=== PATIENT | female | born 1940 | race Caucasian/White ===

== ENCOUNTER → 2018-10-27 | Outpatient (CLI) | payer MEDICARE ==
[~2018-10-27] MED LIST: LEVSOD75 PO; Prinivil10 MG PO
[2018-10-27 19:42] LABS: Alanine Aminotransfer (ALT/SGP 25 U/L (12-78); Albumin, Blood 3.9 g/dL (3.4-5.0); Albumin/Globulin Ratio 1.4 (0.8-1.8); Alk Phos 60 U/L (50-136); Anion Gap 6 mmol/L (6-16); Aspartate Aminotrans (AST/SGOT 18 U/L (12-37); Bilirubin, Total 0.3 mg/dL (0.1-1.0); Blood Urea Nitrogen 24 mg/dL (8-24); Bun/Creatinine Ratio 25.5 (12.0-20.0); CO2, Blood 25 mmol/L (21-32); Calcium, Blood 8.8 mg/dL (8.5-10.1); Chloride, Blood 100 mmol/L (98-108); Creatinine, Blood 0.94 mg/dL (0.40-1.00); Free Thyroxine 1.35 ng/dL (0.70-1.60); Globulin, Blood 2.7 g/dL (2.2-4.0); Glomerular Filtration Rate >60 (60-); Glucose, Blood 92 mg/dL (70-99); Potassium, Blood 4.5 mmol/L (3.5-5.5); Sodium, Blood 131 mmol/L (136-145); Thyroid Stimulating Hormone 0.715 uIU/mL (0.360-4.800); Total Protein, Blood 6.6 g/dL (6.4-8.2)
[2018-10-27 19:49] LABS: Percent Saturation 25.7 % (15.0-50.0)
[2018-10-30 15:07] LABS: A/G RATIO 2.1 (0.7-1.7); ALBUMIN 4.2 g/dL (2.9-4.4); ALPHA-1-GLOBULIN 0.1 g/dL (0.0-0.4); ALPHA-2-GLOBULIN 0.6 g/dL (0.4-1.0); BETA GLOBULIN 0.8 g/dL (0.7-1.3); GAMMA GLOBULIN 0.5 g/dL (0.4-1.8); M-SPIKE Not Observed g/dL (Not Observed); PROTEIN, TOTAL, SERUM 6.2 g/dL (6.0-8.5)
== END | disposition home or self-care (01) ==
LOC: LAB 16:00 → LAB SHORT 16:00
PROVIDERS: Internal Medicine Hematology & Oncology
DX: Z00.00 Encounter for general adult medical examination without abnormal findings (principal); D64.9 Anemia, unspecified; R53.81 Other malaise; R53.83 Other fatigue; E03.9 Hypothyroidism, unspecified
CPT/HCPCS: 80053; 83540; 83550; 84165; 84439; 84443

== ENCOUNTER 2018-11-23 07:17 | Day surgery (SDC) | payer MEDICARE ==
[~2018-11-23] VITALS: Ht 160 cm; Wt 89.5 kg
--- NOTE | 2018-11-23 09:00 | NUR ---
11/23/18 0900 Sarah Sepulveda PT UPDATED OF DELAY IN HER CASE DUE TO PREVIOUS CASE RUNNING LONGER THAN SCHEDULED. PT OFFERED WARM BLANKET AND BATHROOM, PT DENIED BOTH. BED IN LOW, LOCKED POSTION, CALL LIGHT IN REACH.
== END 2018-11-23 11:45 | disposition home or self-care (01) ==
LOC: ORSCSDS 07:17
PROVIDERS: Student in an Organized Health Care Education/Training Program
PROC: 0DBL8ZX Excision of Transverse Colon, Via Natural or Artificial Opening Endoscopic, Diagnostic (ICD-10-PCS; principal; 2018-11-23 09:00)
PROC: 0DBH8ZX Excision of Cecum, Via Natural or Artificial Opening Endoscopic, Diagnostic (ICD-10-PCS; principal; 2018-11-23 09:00)
PROC: 0DBN8ZX Excision of Sigmoid Colon, Via Natural or Artificial Opening Endoscopic, Diagnostic (ICD-10-PCS; principal; 2018-11-23 09:00)
DX: D64.9 Anemia, unspecified (principal); D12.0 Benign neoplasm of cecum; D12.3 Benign neoplasm of transverse colon; K63.5 Polyp of colon; K57.30 Diverticulosis of large intestine without perforation or abscess without bleeding; K64.8 Other hemorrhoids; K64.4 Residual hemorrhoidal skin tags; I10 Essential (primary) hypertension; E03.9 Hypothyroidism, unspecified; Z87.891 Personal history of nicotine dependence; Z79.899 Other long term (current) drug therapy
CPT/HCPCS: 88305; J2405; J2704; J7120

== ENCOUNTER → 2019-03-11 | Outpatient (CLI) | payer MEDICARE | LOC: LAB SHORT 16:10 → LAB 16:10 | DX: D51.8 Other vitamin B12 deficiency anemias (principal) | CPT/HCPCS: 82607; 82746 ==

== ENCOUNTER 2022-10-16 08:42 | Day surgery (SDC) | payer MEDICARE ==
[~2022-10-16] VITALS: Ht 152.4 cm; Wt 85.0 kg
[2022-10-16] VITALS (16 sets, daily range): BP systolic 110–168; BP diastolic 54–76
--- NOTE | 2022-10-16 10:20 | NUR ---
History, Chart, Medications and Allergies reviewed before start of procedure. Ambulatory in Day Surgery with SBA. Patient confirms NPO status and agrees with scheduled surgery. Pre-Op teaching done. Pt verbalizes understanding. Patient reports completing Chlorhexadine shower X2 prior to admission to hospital. Lungs clear T/O to Auscultation. Surgical site prepped with 2% Chlorhexidine cloth wipe.
--- NOTE | 2022-10-16 11:56 | NUR ---
10/16/22 Sarahi Breaux PRIOR TO ARRIVING TO THE OR PATIENT RECEIVED VANCO 1GM IV IN THE PREOP SETTING.
--- NOTE | 2022-10-16 16:59 | NUR ---
ADMIT NOTE NEW ADMIT TO UNIT POD [address] LEZAMA. SLEEPY ON ARRIVAL. UNABLE TO RATE PAIN BUT STATES THAT IT DOES ACHE IN HER RIGHT KNEE AND THIGH. STATES THAT SHE JUST WANTS TO SLEEP. ASSISTED TO REPOSITION TO RIGHT SIDE. SLEEPING AT THIS TIME. VSS. WEANED O2 TO ROOM AIR. LR RUNNING, TXA DONE. ADMIT HISTORY COMPLETED FROM MEDICAL RECORD. RIGHT KNEE WITH LARGE NATALIA WRAP AND GAUZE DRESSING APPEARS C/D/I. ABLE TO MOVES BILAT LEGS AND ANKLES. POLAR PACK IN PLACE. TOLERATED A SIP OF WATER.
--- NOTE | 2022-10-16 17:46 | NUR ---
ASSUMED CARE OF PT FROM RACHEAL Layne RN. PT SLEEPING ON R SIDE. BREATHING E/U. 02 SATS MID 90S. IV FLUIDS INFUSING PER ORDERS.
[2022-10-17 04:33] VITALS: BP 140/70
[2022-10-17 04:44] LABS: BASOPHILS ABSOLUTE AUTO 0.01 K/mm3 (0.00-0.23); BASOPHILS PERCENT AUTO 0 % (0-2); EOSINOPHILS PERCENT AUTO 0 % (0-6); Hematocrit 26.2 % (33.0-51.0); Hemoglobin 8.4 g/dL (11.5-16.0); IMMATURE GRAN ABSOLUTE AUTO 0.03 K/mm3 (0.00-0.10); IMMATURE GRAN PERCENT AUTO 0 % (0-1); LYMPHOCYTES ABSOLUTE AUTO 0.63 K/mm3 (0.84-5.20); LYMPHOCYTES PERCENT AUTO 7 % (21-46); MONOCYTES ABSOLUTE AUTO 0.57 K/mm3 (0.16-1.47); MONOCYTES PERCENT AUTO 6 % (4-13); Mean Corpuscular HGB 30.1 pg (26.0-34.0); Mean Corpuscular HGB Conc 32.1 g/dL (31.5-36.5); Mean Corpuscular Volume 94 fL (80-100); Mean Platelet Volume 10.9 fL (9.1-12.4); NEUTROPHILS ABSOLUTE AUTO 7.83 K/mm3 (1.96-9.15); NEUTROPHILS PERCENT AUTO 86 % (41-73); Platelet Count 232 K/mm3 (150-400); RDW Coefficient Variation 12.7 % (11.7-14.2); RDW Standard Deviation 44.2 fL (35.1-46.3); Red Blood Cell Count 2.79 M/mm3 (3.80-5.20); White Blood Cell Count 9.07 K/mm3 (4.00-11.30)
[2022-10-17 05:06] LABS: Bun/Creatinine Ratio 25.5 (12.0-20.0); Calcium, Blood 8.4 mg/dL (8.5-10.1); Creatinine, Blood 1.49 mg/dL (0.40-1.00); Magnesium, Blood 2.2 mg/dL (1.6-2.4)
--- NOTE | 2022-10-17 07:18 | NUR ---
SUMMARY PT DENIES NEED FOR PAIN MEDS AT PRESENT.ENC PO FLUIDS.OOB WITH GAIT BELT WALKER AND ASSIST.
[2022-10-17 07:21] VITALS: BP 143/51
[2022-10-17] MEDS ORDERED: OXYC5 PO (09:47)
[2022-10-17] MEDS ORDERED: ASPI81CH PO (09:47)
[2022-10-17] MEDS ORDERED: SULTRIDS PO (09:48)
[2022-10-17] MEDS ORDERED: PROM25 PO (09:53)
[2022-10-17 14:15] VITALS: BP 155/50
--- NOTE | 2022-10-17 14:42 | NUR ---
DISCHARGE PT AND HER DAUGHTER IN LAW WERE PROVIDED WITH WRITTEN AND VERBAL DISCHARGE INSTRUCTIONS; THEY REPORTED UNDERSTANDING. VSS WITHIN 1 HOUR OF DISCHARGE. DRESSING TO L HAND SKIN TEAR CHANGED, MEPITEL ONE PLACED. PT PROVIDED WITH CLEAN AQUACEL DRESSINGS AND MEPITEL DRESSINGS FOR L HAND. PT WAS ABLE TO WALK PRIOR TO DISCHARGE AND TOLERATED WELL SHE DENIED LIGHTHEADEDNESS/FUZZINESS. PT ASSISTED OUT AT 1445 IN WC. SHE MET THERAPY GOALS, PAIN MANAGED, TOLERATED PO AND ABLE TO VOID PRIOR TO DISCHARGE.
== END 2022-10-17 14:40 | disposition home or self-care (01) ==
LOC: ORSCMMR 08:42 → ORD 11:00 → ORSCMMR 11:00 → SURS 14:46 → ORSCMMR 10-17 14:40
PROVIDERS: Orthopaedic Surgery
PROC: 0SRC0J9 Replacement of Right Knee Joint with Synthetic Substitute, Cemented, Open Approach (ICD-10-PCS; principal; 2022-10-16 11:00)
DX: M17.11 Unilateral primary osteoarthritis, right knee (principal); I10 Essential (primary) hypertension; E03.9 Hypothyroidism, unspecified; Z87.891 Personal history of nicotine dependence; E66.9 Obesity, unspecified; Z68.35 Body mass index [BMI] 35.0-35.9, adult; Z79.899 Other long term (current) drug therapy
CPT/HCPCS: 36415; 73560-RT; 80048; 83735; 85025; 97110; 97161; A9270; C1713; C1776; J0171; J0690; J0735; J1100; J1885; J2250; J2405; J2704; J2795; J3010; J3370; J7120